=== PATIENT | female | born 1985 | race Hispanic/Latino ===

== ENCOUNTER 2018-07-02 15:25 | Outpatient (CLI) | payer OTHER ==
--- NOTE | 2018-07-02 17:22 | RAD ---
LEFT ANKLE TWO VIEWS: 07/02/18 HISTORY: Left ankle pain. FINDINGS/IMPRESSION: The ankle mortise is maintained. No acute fracture or dislocation is seen. POS: [facility]
== END 2018-07-02 15:26 | disposition home or self-care (01) ==
LOC: BICRAD 15:25
PROVIDERS: ATTEND Family Medicine
DX: M79.673 Pain in unspecified foot (principal)